=== PATIENT | male | born 1930 ===

== ENCOUNTER 2017-12-08 08:56 | Outpatient (CLI) | payer OTHER | END 2017-12-08 15:45 | disposition home or self-care (01) | LOC: RX STUDY 08:56 | DX: R10.84 Generalized abdominal pain (principal); R14.0 Abdominal distension (gaseous); K62.7 Radiation proctitis ==

== ENCOUNTER 2018-04-06 10:11 | Emergency (ER) | payer OTHER ==
[~2018-04-06] VITALS: Ht 167.6 cm; Wt 78.5 kg
[2018-04-06] MEDS ORDERED: SIMVASTATIN20 MG (10:30)
[2018-04-06] MEDS ORDERED: AVAPRO150 MG (10:31)
[2018-04-06] MEDS ORDERED: ASA81 MG (10:31)
[2018-04-06] MEDS ORDERED: CLOPIDOGREL BIS75 MG (10:31)
[2018-04-06] MEDS ORDERED: METROPOLOL (10:31)
== END 2018-04-06 13:34 | disposition home or self-care (01) ==
LOC: ER 10:11
DX: K58.8 Other irritable bowel syndrome (principal)